=== PATIENT | male | born 1930 | race Caucasian/White ===

== ENCOUNTER 2017-01-20 11:23 | Emergency (ER) | payer MEDICARE, BC ==
--- NOTE | 2017-01-20 12:02 | UC ---
Lower Extremity/Ankle HPI - HPI Summary HPI Summary: 86 y/o male PMHX HTN, Atrial fibrillation stroke presents to the urgent care c/ o RT ankle pain and swelling s/p falling on ice yesterday at 1000AM. Pt reports he twisted his ankle but he was able to walk with w/ mild limping. Pt took Ibuprofen 600mg PO and applied ice on it yesterday. However this morning swelling and pain increased. Pain is 7/10 specially with ambulation. Pt reports he has Hx of Lymphedema, LF leg> RT leg. He is taking Eliquis. Pt denies fever , calf pain, SOB, chest pain, numbness and tingling over the Rt foot, abdominal pain, N/V/D - History of Current Complaint Chief Complaint: UCLowerExtremity Stated Complaint: ANKLE INJURY Time Seen by Provider: 01/20/17 11:56 Hx Obtained From: Patient Onset/Duration: Sudden Onset, Lasting Days - 1 day, Still Present, Worse Since - this morning Severity Initially: Moderate Severity Currently: Moderate Pain Intensity: 7 Pain Scale Used: 0-10 Numeric Aggravating Factor(s): Standing, Ambulation Alleviating Factor(s): Rest, Elevation, Ice Able to Bear Weight: Yes - Risk Factors Gout Risk Factors: Age Over 40, Male, Hypertension DVT Risk Factors: Negative Septic Arthritis Risk Factor: Negative - Allergies/Home Medications Allergies/Adverse Reactions: Allergies Allergy/AdvReac Type Severity Reaction Status Date / Time Penicillins Allergy Hives Verified 01/20/17 11:32 PMH/Surg Hx/FS Hx/Imm Hx Previously Healthy: Yes Endocrine History: Dyslipidemia Other Endocrine History: Lymphedema Cardiovascular History: Hypertension, Atrial Fibrillation Other Neurological History: Spondolythesis, Stroke - Surgical History Surgical History: Yes Surgery Procedure, Year, and Place: Back 1999, 2004, CATARACT SURGERY 2004. Hernia Repair 2000, RETINA REPAIR (LASER) 2004 - Family History Known Family History: Positive: Cardiac Disease, Hypertension - Social History Occupation: Retired Lives: With Family Alcohol Use: None Alcohol Amount: 1/day Substance Use Type: None Smoking Status (MU): Never Smoked Tobacco - Immunization History Most Recent Influenza Vaccination: Fall 2013 Most Recent Tetanus Shot: 2 years Most Recent Pneumonia Vaccination: August 2013 Review of Systems Constitutional: Negative Skin: Negative Eyes: Negative ENT: Negative Respiratory: Negative Cardiovascular: Negative Gastrointestinal: Negative Genitourinary: Negative Motor: Negative Neurovascular: Negative Musculoskeletal: Other: - RT ankle pain and swelling s/p falling Neurological: Negative Psychological: Negative Is Patient Immunocompromised?: No All Other Systems Reviewed And Are Negative: Yes Physical Exam Triage Information Reviewed: Yes Vital Signs: Initial Vital Signs Temp 98 F 01/20/17 11:32 Pulse 85 01/20/17 11:32 Resp 16 01/20/17 11:32 BP 153/67 01/20/17 11:32 Pulse Ox 100 01/20/17 11:32 - Additional Comments Vital Signs Reviewed: Yes General: well developed, well nourished male, sitting in the wheel chair w/o any apparent distress Eyes: Positive: Conjunctiva Clear - PERRLA, EOMI, ENT: Positive: Normal ENT inspection, Hearing grossly normal, Pharynx normal, Pt with B?l ear pieces. RT external ear canal cleat RT WNL, LF exteranl ear canal clear, LF TM injected with erythema. Neck: Positive: Supple, Nontender, No Lymphadenopathy Respiratory: Positive: Chest non-tender, Lungs clear, Normal breath sounds, No respiratory distress Cardiovascular: Positive: RRR, No Murmur, Pulses Normal, Brisk Capillary Refill Abdomen Description: Positive: Nontender, No Organomegaly, Soft. Negative: CVA Tenderness (R), CVA Tenderness (L) Bowel Sounds: Positive: Present Musculoskeletal: - Ankle: Pt is able to bear weight and ambulate w/ limping. The R ankle is without obvious asymmetry or deformity when compared to the L ankle. Decrease ROM due to pain. Moderate swelling at the lateral malleolus, with tenderness to palpation. Mild ecchymosis or bruising observed in the medial malleoulus . Tenderness to palpation over the medial malleolus , Moderate swelling ovr the ankle and foot, specially on the dorsum of foots. Talar tilt test, drwaer test unable to perform due to pain. Peroneal nerve is intact with strong eversion and plantar flexion. Positive sensation over the Rt foot and Rt ankle, positive pulses, capillary refill intact. Left foot with moderate swelling due to HX of lymphedema. FROM for left foot and ankle, sensation WNL and positive pulses. Neurological Exam: Normal Psychological Exam: Normal Skin: warm and dry Lower Extremity Course/Dx - Course Course Of Treatment: 86 y/o male PMHX HTN, Atrial fibrillation stroke presents to the urgent care c/o RT ankle pain and swelling s/p falling on ice yesterday at 1000AM. Pt reports he twisted his ankle but he was able to walk with w/ mild limping. Pt took Ibuprofen 600mg PO and applied ice on it yesterday. However this morning swelling and pain increased. Pain is 7/10 specially with ambulation. Pt reports he has Hx of Lymphedema, LF leg> RT leg. He is taking Eliquis. Pt denies fever, calf pain, SOB, chest pain, numbness and tingling over the Rt foot, abdominal pain, N/V/D. HX obtained. RT can X-ray ordered: Impression: Spiral fracture of the lateral malleolus terminating inferiorly at the level of the ankle Mortise. Pt's symptoms and results consulted with DR Diana , She recommended to call Orthopedic automation test developer. I spoke to Orthopedic Dr Cisse and he recommended to immobilize Pt's Rt ankle with a CAM boot, crutches and NSAIDs and he will see him on Sunday01/22/2017. Pt Rx Tylenol PO for pain since Pt is taking Eloquis PO. Rt ankle immobilized with Yumiko bandage and Ruth placed in his RT ankle. Pt was unable to use crutches, he felt out of balance. Pt given a walker. However was allow to use the clinic's wheel chair until Sunday until he can see Oropedic and get one in a surgical supply store. Rx given for wheel chair. Pt strongly advise to avoid weight bearing, RICE and f/u with Dr Cisse on Sunday. Pt also with RT otitis Media, Rx Zpak only to take it if symptoms worsen. Pt's BP is elevated today advised to decrease salt in diet, monitor BP and f/u with PCP for further management. Pt explained X-ray results. All questions ansawered at Pt's satisfaction. Pt understood and agreed with D/C instructions.Pt left the clinic hemodinamycally stable, A&OX3 and accompany by his friend. - Differential Dx/Diagnosis Differential Diagnosis/HQI/PQRI: Arthritis, Contusion, DVT, Fracture (Closed), Gout, Phlebitis, Sprain, Strain, Tendonitis, Other - lymphedima Provider Diagnoses: 1- Acute RT ankle pain s/p falling. 2-spiral fracture of the lateral malleolus terminating inferiorly at the level of the ankle Mortise. 3-RT acute otitis Media. 4- Uncontrolled HTN - Physician Notifications Discussed Patient Care With: Oren Cisse - He recommended to immobilize Pt' s RT ankle with CAM boot, crutches and NSAIDs and he will see him on Moday 01/22 Time Discussed With Above Provider: 00:05 Instructed by Provider To: Have Pt Call For Appt. Discharge - Discharge Plan Condition: Stable Disposition: HOME Prescriptions: Acetaminophen TAB* [Tylenol TAB*] 650 mg PO Q6H PRN #20 tab PRN Reason: Pain Azithromyxin LEONEL (NF) [Z-Leonel (Zithromax) 250 mg tabs #6] 2 tab PO .TODAY, THEN 1 DAILY #6 tab Patient Education Materials: Ankle Fracture (ED), Otitis Media (ED), Low Sodium Diet (ED) Referrals: Oren Cisse MD [Medical Doctor] - 2 Days Sridhar Romero MD [Primary Care Provider] - If Needed Additional Instructions: 1- You are Dx with Spiral fracture of your RT ankle. 2-Please take medications as directed to alleviate pain and swelling. 3-Please apply ice, keep your ankle immobilized with the ruth. Unable to use crutches due to high risk of falling. Therefore you need a wheel chair for mobilization and avoid weight bearing. . Avoid strenuous exercise or standing for long periods of time 4- Please f/u with your Orthopedic Dr Cisse as soon as possible Sunday Morning for further evaluation and treatment. I spoke to him and he will be expecting you. 5- If you develop severe pain with swelling and SOB please go immediately to the ER for further management 6-Your BP is elevated today. please decrease salt in your diet, monitor BP and if it continues to be elevated please f/u with your PCP for further management 7- Please take the antibiotic as directed for your Otitis media only if pain persists and symptoms worsen
--- NOTE | 2017-01-20 12:43 | RAD ---
Indication: Medial RIGHT ankle pain post fall. Comparison: No relevant prior exams available on the [facility] for comparison. Technique: AP, mortise, and lateral views RIGHT ankle. AP and lateral views RIGHT tibia and fibula. Report: Spiral fracture of the distal metaphysis of the fibula terminating inferiorly at the level of the ankle mortise. Widening of the ankle mortise superior medial and medial. Os trigonum accessory ossicle. Negative for fracture of the more proximal fibula or tibia. Significant soft tissue swelling at the distal lower leg and ankle as well as over the dorsum of the foot most marked over the lateral malleolus. IMPRESSION: 1. Spiral fracture of the lateral malleolus terminating inferiorly at the level of the ankle mortise. 2. Significant incongruity at the ankle mortise without medial malleolus fracture most consistent with associated deltoid ligament tear. 3. Negative for Maisonneuve fracture pattern.
--- NOTE | 2017-01-20 12:43 | RAD ---
Indication: Medial RIGHT ankle pain post fall. Comparison: No relevant prior exams available on the [facility] [place] for comparison. Technique: AP, mortise, and lateral views RIGHT ankle. AP and lateral views RIGHT tibia and fibula. Report: Spiral fracture of the distal metaphysis of the fibula terminating inferiorly at the level of the ankle mortise. Widening of the ankle mortise superior medial and medial. Os trigonum accessory ossicle. Negative for fracture of the more proximal fibula or tibia. Significant soft tissue swelling at the distal lower leg and ankle as well as over the dorsum of the foot most marked over the lateral malleolus. IMPRESSION: 1. Spiral fracture of the lateral malleolus terminating inferiorly at the level of the ankle mortise. 2. Significant incongruity at the ankle mortise without medial malleolus fracture most consistent with associated deltoid ligament tear. 3. Negative for Maisonneuve fracture pattern.
[2017-01-20 13:56] VITALS: BP 146/65
== END 2017-01-20 14:15 | disposition home or self-care (01) ==
LOC: UCEAST 11:23
DX: S82.64XA Nondisplaced fracture of lateral malleolus of right fibula, initial encounter for closed fracture (principal); H66.91 Otitis media, unspecified, right ear; I10 Essential (primary) hypertension; S93.421A Sprain of deltoid ligament of right ankle, initial encounter; W00.0XXA Fall on same level due to ice and snow, initial encounter; Y92.9 Unspecified place or not applicable; Z88.0 Allergy status to penicillin; I48.91 Unspecified atrial fibrillation; Z79.01 Long term (current) use of anticoagulants; Z86.73 Personal history of transient ischemic attack (TIA), and cerebral infarction without residual deficits
CPT/HCPCS: 99213; G0463

== ENCOUNTER 2020-04-29 12:53 | Inpatient (IN) ==
[2020-04-29 14:31] LABS: ABS Lymphocytes 0.5 10^3/ul (1.0-4.8); ABS Monocytes 0.4 10^3/ul (0-0.8); ABS Neutrophils 4.6 10^3/ul (1.5-7.7); Eosinophil % 0.7 %; Hematocrit 42 % (42-52); Lymphocyte % 9.7 %; Mean Corpuscular HGB Conc 33 g/dL (31-36); Mean Corpuscular Hemoglobin 30 pg (27-31); Mean Corpuscular Volume 92 fL (80-94); Mean Platelet Volume 8.9 fL (7.4-10.4); Platelet Count 148 10^3/uL (150-450); Red Blood Count 4.62 10^6 /uL (4.18-5.48); Red Cell Distribution Width 14 % (10-15); White Blood Count 5.6 10^3/uL (3.5-10.8)
[2020-04-29 14:47] LABS: Urine Appearance Clear; Urine Bilirubin Negative (Negative); Urine Blood Negative (Negative); Urine Color Yellow; Urine Glucose Negative (Negative); Urine Ketones Negative (Negative); Urine Nitrite Negative (Negative); Urine Protein Negative (Negative); Urine Specific Gravity 1.006 (1.010-1.030); Urine Urobilinogen Negative (Negative)
[2020-04-29 14:50] LABS: Troponin I 0.01 ng/mL (<0.03)
[2020-04-29 14:52] LABS: Albumin 4.2 g/dL (3.2-5.2); Albumin/Globulin Ratio 1.6 (1-3); BUN/Creatinine Ratio 24.6 (8-20); EGFR Non-African American 56.2 (>60); Globulin 2.6 g/dL (2-4); Magnesium 2.4 mg/dL (1.9-2.7); Potassium 4.1 mmol/L (3.5-5.0); Total Bilirubin 1.1 mg/dL (0.2-1.0); Total Protein 6.8 g/dL (6.4-8.9)
[2020-04-29 15:07] LABS: Urine Bacteria Absent (Absent); Urine Red Blood Cell Absent (Absent); Urine Squamous Epithelial Cell Present (Absent); Urine White Blood Cell Trace(0-5/hpf) (Absent)
[2020-04-29 15:11] LABS: Activated Partial Thrombo Time 33.5 seconds (26.0-38.0); INR 1.18 (0.82-1.09)
[2020-04-29 15:28] LABS: TSH Ultra Thyroid Stim Horm 1.26 mcIU/mL (0.34-5.60)
[2020-04-29] MEDS ORDERED: Ondansetron 4 mg VIAL 2 MG/ML 2 ml VIAL IV PRN (17:52)
[2020-04-29] MEDS ORDERED: Dexamethasone IV 4 MG/ML VIAL 1 ml VIAL IV SLOW PU ONE (18:30)
[2020-04-29] MEDS: Sodium Chloride 5% OPTH.SOL 15 ML BTL BOTH EYES SCH (23:01)
[2020-04-29] MEDS: prednisoLONE 1% OPHTH.SUSP 5 ML OPHTH.SUSP RIGHT EYE SCH (23:02)
[2020-04-30 05:30] LABS: ABS Lymphocytes 0.4 10^3/ul (1.0-4.8); ABS Neutrophils 2.8 10^3/ul (1.5-7.7); Eosinophil % 0.1 %; Hematocrit 42 % (42-52); Hemoglobin 14.1 g/dL (14.0-18.0); Lymphocyte % 10.9 %; Mean Corpuscular HGB Conc 34 g/dL (31-36); Mean Corpuscular Hemoglobin 30 pg (27-31); Mean Corpuscular Volume 90 fL (80-94); Mean Platelet Volume 9.3 fL (7.4-10.4); Platelet Count 161 10^3/uL (150-450); Red Blood Count 4.65 10^6 /uL (4.18-5.48); Red Cell Distribution Width 13 % (10-15); White Blood Count 3.2 10^3/uL (3.5-10.8)
[2020-04-30 05:45] LABS: BUN/Creatinine Ratio 25.2 (8-20); Calcium 9.5 mg/dL (8.6-10.3); EGFR Non-African American 57.8 (>60); Magnesium 2.2 mg/dL (1.9-2.7); Potassium 3.9 mmol/L (3.5-5.0)
[2020-04-30] MEDS: prednisoLONE 1% OPHTH.SUSP 5 ML OPHTH.SUSP RIGHT EYE SCH ×5 (09:01→21:33)
[2020-04-30] MEDS: Sodium Chloride 5% OPTH.SOL 15 ML BTL BOTH EYES SCH ×3 (09:01→21:32)
[2020-04-30] MEDS: Cholecalciferol (VIT D3) 1,000 unit TAB PO SCH (09:02)
[2020-04-30] MEDS: Vitamin THERAPEUTIC TAB PO SCH (09:02)
[2020-04-30] MEDS: Calcium/Vitamin D TAB 250/125 TAB PO SCH (09:02)
[2020-04-30] MEDS ORDERED: Enoxaparin 40 MG/0.4 ML SYR SUBCUT SCH (21:00)
[2020-05-01] MEDS: prednisoLONE 1% OPHTH.SUSP 5 ML OPHTH.SUSP RIGHT EYE SCH ×4 (08:34→20:52)
[2020-05-01] MEDS: Vitamin THERAPEUTIC TAB PO SCH (08:35)
[2020-05-01] MEDS: Cholecalciferol (VIT D3) 1,000 unit TAB PO SCH (08:35)
[2020-05-01] MEDS: Calcium/Vitamin D TAB 250/125 TAB PO SCH (08:36)
[2020-05-01] MEDS: Sodium Chloride 5% OPTH.SOL 15 ML BTL BOTH EYES SCH ×3 (08:51→20:51)
[2020-05-01] MEDS: Psyllium PAK PO SCH (09:57)
[2020-05-01] MEDS: Enoxaparin 80 MG/0.8 ML SYR SUBCUT SCH ×2 (09:57→21:57)
[2020-05-01] MEDS ORDERED: Dextran 70/Hypromellose Tears Eye Drops 15 ml BTL (for Artificials Tears) RIGHT EYE PRN (13:14)
[2020-05-02] MEDS: Sodium Chloride 5% OPTH.SOL 15 ML BTL BOTH EYES SCH ×3 (09:14→21:47)
[2020-05-02] MEDS: prednisoLONE 1% OPHTH.SUSP 5 ML OPHTH.SUSP RIGHT EYE SCH ×3 (09:14→21:46)
[2020-05-02] MEDS: Calcium/Vitamin D TAB 250/125 TAB PO SCH (09:15)
[2020-05-02] MEDS: Vitamin THERAPEUTIC TAB PO SCH (09:19)
[2020-05-02] MEDS: Cholecalciferol (VIT D3) 1,000 unit TAB PO SCH (09:20)
[2020-05-02] MEDS: Enoxaparin 80 MG/0.8 ML SYR SUBCUT SCH ×2 (09:24→21:45)
[2020-05-02] MEDS: Psyllium PAK PO SCH (09:24)
[2020-05-03] MEDS: Sodium Chloride 5% OPTH.SOL 15 ML BTL BOTH EYES SCH ×3 (08:21→19:58)
[2020-05-03] MEDS: prednisoLONE 1% OPHTH.SUSP 5 ML OPHTH.SUSP RIGHT EYE SCH ×3 (08:21→19:58)
[2020-05-03] MEDS: Cholecalciferol (VIT D3) 1,000 unit TAB PO SCH (08:23)
[2020-05-03] MEDS: Calcium/Vitamin D TAB 250/125 TAB PO SCH (08:23)
[2020-05-03] MEDS: Vitamin THERAPEUTIC TAB PO SCH (08:23)
[2020-05-03] MEDS: Psyllium PAK PO SCH (08:24)
[2020-05-03] MEDS: Enoxaparin 80 MG/0.8 ML SYR SUBCUT SCH ×2 (08:24→19:58)
[2020-05-04 06:28] LABS: ABS Lymphocytes 0.3 10^3/ul (1.0-4.8); ABS Monocytes 0.2 10^3/ul (0-0.8); ABS Neutrophils 5.9 10^3/ul (1.5-7.7); Hematocrit 44 % (42-52); Hemoglobin 14.9 g/dL (14.0-18.0); Lymphocyte % 4.3 %; Mean Corpuscular HGB Conc 34 g/dL (31-36); Mean Corpuscular Hemoglobin 31 pg (27-31); Mean Corpuscular Volume 90 fL (80-94); Mean Platelet Volume 9.3 fL (7.4-10.4); Platelet Count 165 10^3/uL (150-450); Red Blood Count 4.86 10^6 /uL (4.18-5.48); Red Cell Distribution Width 14 % (10-15); White Blood Count 6.4 10^3/uL (3.5-10.8)
[2020-05-04 06:37] LABS: Activated Partial Thrombo Time 30.6 seconds (26.0-38.0); INR 1.03 (0.82-1.09)
[2020-05-04 06:46] LABS: BUN/Creatinine Ratio 40.2 (8-20); Calcium 8.7 mg/dL (8.6-10.3); EGFR African American 62.1 (>60); EGFR Non-African American 51.3 (>60); Potassium 3.6 mmol/L (3.5-5.0)
[2020-05-04] MEDS: Enoxaparin 80 MG/0.8 ML SYR SUBCUT SCH (08:58)
[2020-05-04] MEDS: Psyllium PAK PO SCH (08:59)
[2020-05-04] MEDS: prednisoLONE 1% OPHTH.SUSP 5 ML OPHTH.SUSP RIGHT EYE SCH ×3 (08:59→20:20)
[2020-05-04] MEDS: Cholecalciferol (VIT D3) 1,000 unit TAB PO SCH (09:00)
[2020-05-04] MEDS: Sodium Chloride 5% OPTH.SOL 15 ML BTL BOTH EYES SCH ×3 (09:00→20:20)
[2020-05-04] MEDS: Vitamin THERAPEUTIC TAB PO SCH (09:00)
[2020-05-04] MEDS: Calcium/Vitamin D TAB 250/125 TAB PO SCH (09:01)
[2020-05-04] MEDS ORDERED: Buffered Lidocaine 1% SYRIN 1 ml INTRADERM ONE (10:25)
[2020-05-04] MEDS ORDERED: Lactated Ringers 1000 ml BAG 1,000 ML IV SCH (11:00)
[2020-05-04] MEDS ORDERED: Al Hydrox/Mg Hydrox/Simet LIQ 30 ML UDC PO PRN (20:20)
[2020-05-05 05:27] LABS: ABS Lymphocytes 0.2 10^3/ul (1.0-4.8); ABS Monocytes 0.4 10^3/ul (0-0.8); ABS Neutrophils 7.3 10^3/ul (1.5-7.7); Hematocrit 41 % (42-52); Hemoglobin 14.3 g/dL (14.0-18.0); Lymphocyte % 2.6 %; Mean Corpuscular HGB Conc 35 g/dL (31-36); Mean Corpuscular Hemoglobin 31 pg (27-31); Mean Corpuscular Volume 89 fL (80-94); Mean Platelet Volume 8.9 fL (7.4-10.4); Platelet Count 168 10^3/uL (150-450); Red Cell Distribution Width 14 % (10-15)
[2020-05-05 05:44] LABS: BUN/Creatinine Ratio 47.6 (8-20); Calcium 8.4 mg/dL (8.6-10.3); EGFR African American 55.7 (>60); Potassium 3.6 mmol/L (3.5-5.0)
[2020-05-05] MEDS ORDERED: Clindamycin 900 MG/D5W BAG 900 MG/50 ML BAG IVPB ONE ×2 (07:05→07:30)
[2020-05-05] MEDS ORDERED: Vancomycin 1,000 MG VIAL ONE (07:05)
[2020-05-05] MEDS ORDERED: Lidocaine 1% w EPI 1:200,000 SDV 30 ML VIAL ONE (07:05)
[2020-05-05] MEDS ORDERED: Thrombin 5,000 UNITS 1 APPLIC KIT - topical use - TOPICAL ONE (07:05)
[2020-05-05] MEDS ORDERED: Gelfoam Sponge SIZE 100 SPONGE ONE (07:06)
[2020-05-05] MEDS ORDERED: Bacitracin OINTMENT TUBE ONE (07:06)
[2020-05-05] MEDS ORDERED: ceFAZolin VIAL VIAL ONE (07:06)
[2020-05-05] MEDS ORDERED: Bacitracin INJECTION 50,000 UNITS ONE (07:06)
[2020-05-05] MEDS ORDERED: fentaNYL 250 mcg/5 ml 50 MCG/ML 5 ml VIAL (250 MCG) ONE (07:14)
[2020-05-05] MEDS ORDERED: Remifentanil 2 MG VIAL ONE ×2 (07:14→10:06)
[2020-05-05] MEDS ORDERED: Phenylephrine IV 10 MG/ML 1 ml VIAL ONE (07:16)
[2020-05-05] MEDS ORDERED: Propofol 10 MG/ML 20 ML BTL ONE ×2 (07:20→12:23)
[2020-05-05] MEDS ORDERED: HYDROmorphone 1 MG/1 ML SYRINGE IV PRN (07:28)
[2020-05-05] MEDS ORDERED: Naloxone 0.4 mg VIAL 0.4 mg/ml 1 ml VIAL IV PRN (07:28)
[2020-05-05] MEDS ORDERED: Ondansetron 4 mg VIAL 2 MG/ML 2 ml VIAL IV PRN (07:28)
[2020-05-05] MEDS ORDERED: fentaNYL 100 mcg/2 ml 50 MCG/ML VIAL IV PRN (07:28)
[2020-05-05] MEDS ORDERED: Dexamethasone IV 4 MG/ML VIAL 1 ml VIAL ONE (09:14)
[2020-05-05] MEDS ORDERED: Propofol 10 mg/ml 100 ML BTL 200 ML ONE (09:21)
[2020-05-05] MEDS: Psyllium PAK PO SCH (09:56)
[2020-05-05] MEDS: prednisoLONE 1% OPHTH.SUSP 5 ML OPHTH.SUSP RIGHT EYE SCH ×3 (09:56→20:53)
[2020-05-05] MEDS: Sodium Chloride 5% OPTH.SOL 15 ML BTL BOTH EYES SCH ×3 (09:57→20:52)
[2020-05-05] MEDS ORDERED: Clindamycin VIAL 150 MG/ML VIAL (600 MG) ONE (11:00)
[2020-05-05] MEDS: Calcium/Vitamin D TAB 250/125 TAB PO SCH (11:14)
[2020-05-05] MEDS: Cholecalciferol (VIT D3) 1,000 unit TAB PO SCH (11:14)
[2020-05-05] MEDS: Vitamin THERAPEUTIC TAB PO SCH (11:15)
[2020-05-05] MEDS ORDERED: Ondansetron 4 mg VIAL 2 MG/ML 2 ml VIAL ONE (11:56)
[2020-05-05] MEDS ORDERED: EPHEDrine (Pressors) 50 MG/ML VIAL ONE (12:11)
[2020-05-05] MEDS ORDERED: Morphine 2 MG/ML SYRINGE IV PRN (12:45)
[2020-05-05] MEDS ORDERED: Polyethylene Glycol 3350 17 GM PACKET PO PRN (12:45)
[2020-05-05] MEDS ORDERED: fentaNYL 100 mcg/2 ml 50 MCG/ML VIAL ONE (13:30)
[2020-05-05] MEDS ORDERED: NS 0.9% 1000 ml BAG 1,000 ML IV SCH (14:30)
[2020-05-05] MEDS: Dexamethasone IV 4 MG/ML VIAL 1 ml VIAL IV SLOW PU SCH ×2 (15:40→23:15)
[2020-05-05 16:42] LABS: Hepatitis B Surface Antigen Nonreactive (Nonreactive)
[2020-05-05 16:52] LABS: HIV 4th Generation Nonreactive (Nonreactive)
[2020-05-05] MEDS: Clindamycin 900 MG IVPREMIX- Q8H IVPB SCH (17:56)
[2020-05-05] MEDS: Magnesium Hydroxide LIQ 30 ML UDC PO SCH (20:52)
[2020-05-06] MEDS: Clindamycin 900 MG IVPREMIX- Q8H IVPB SCH ×3 (01:57→17:57)
[2020-05-06 02:13] LABS: Hepatitis C Antibody Negative (Negative)
[2020-05-06] MEDS: Dexamethasone IV 4 MG/ML VIAL 1 ml VIAL IV SLOW PU SCH ×3 (06:30→23:06)
[2020-05-06 07:33] LABS: ABS Lymphocytes 0.2 10^3/ul (1.0-4.8); ABS Neutrophils 12.5 10^3/ul (1.5-7.7); Hematocrit 42 % (42-52); Hemoglobin 14.5 g/dL (14.0-18.0); Lymphocyte % 1.5 %; Mean Corpuscular HGB Conc 34 g/dL (31-36); Mean Corpuscular Hemoglobin 31 pg (27-31); Mean Corpuscular Volume 90 fL (80-94); Mean Platelet Volume 9.2 fL (7.4-10.4); Platelet Count 178 10^3/uL (150-450); Red Cell Distribution Width 13 % (10-15); White Blood Count 13.8 10^3/uL (3.5-10.8)
[2020-05-06 07:50] LABS: BUN/Creatinine Ratio 45.5 (8-20); Calcium 8.5 mg/dL (8.6-10.3); EGFR African American 56.6 (>60); EGFR Non-African American 46.8 (>60); Potassium 4.4 mmol/L (3.5-5.0)
[2020-05-06] MEDS: Magnesium Hydroxide LIQ 30 ML UDC PO SCH ×2 (08:14→21:53)
[2020-05-06] MEDS: Psyllium PAK PO SCH (08:15)
[2020-05-06] MEDS: Sodium Chloride 5% OPTH.SOL 15 ML BTL BOTH EYES SCH ×3 (08:16→21:53)
[2020-05-06] MEDS: prednisoLONE 1% OPHTH.SUSP 5 ML OPHTH.SUSP RIGHT EYE SCH ×3 (08:17→21:51)
[2020-05-06] MEDS: Vitamin THERAPEUTIC TAB PO SCH (08:18)
[2020-05-06] MEDS: Cholecalciferol (VIT D3) 1,000 unit TAB PO SCH (08:20)
[2020-05-06] MEDS: Calcium/Vitamin D TAB 250/125 TAB PO SCH (08:20)
[2020-05-06] MEDS ORDERED: Enoxaparin 40 MG/0.4 ML SYR SUBCUT SCH (09:00)
[2020-05-07] MEDS: Clindamycin 900 MG IVPREMIX- Q8H IVPB SCH (02:43)
[2020-05-07 06:36] LABS: ABS Lymphocytes 0.2 10^3/ul (1.0-4.8); ABS Monocytes 1.1 10^3/ul (0-0.8); ABS Neutrophils 11.9 10^3/ul (1.5-7.7); Hematocrit 40 % (42-52); Hemoglobin 13.5 g/dL (14.0-18.0); Lymphocyte % 1.5 %; Mean Corpuscular HGB Conc 34 g/dL (31-36); Mean Corpuscular Hemoglobin 30 pg (27-31); Mean Corpuscular Volume 90 fL (80-94); Mean Platelet Volume 9.2 fL (7.4-10.4); Platelet Count 161 10^3/uL (150-450); Red Blood Count 4.43 10^6 /uL (4.18-5.48); Red Cell Distribution Width 14 % (10-15); White Blood Count 13.2 10^3/uL (3.5-10.8)
[2020-05-07 06:53] LABS: Albumin/Globulin Ratio 1.4 (1-3); BUN/Creatinine Ratio 39.8 (8-20); EGFR African American 44.5 (>60); EGFR Non-African American 36.8 (>60); Globulin 2.2 g/dL (2-4); Potassium 4.7 mmol/L (3.5-5.0); Total Bilirubin 0.9 mg/dL (0.2-1.0); Total Protein 5.2 g/dL (6.4-8.9)
[2020-05-07 07:59] VITALS: BP 166/77
[2020-05-07] MEDS: prednisoLONE 1% OPHTH.SUSP 5 ML OPHTH.SUSP RIGHT EYE SCH (08:24)
[2020-05-07] MEDS: Sodium Chloride 5% OPTH.SOL 15 ML BTL BOTH EYES SCH (08:24)
[2020-05-07] MEDS: Cholecalciferol (VIT D3) 1,000 unit TAB PO SCH (08:28)
[2020-05-07] MEDS: Vitamin THERAPEUTIC TAB PO SCH (08:28)
[2020-05-07] MEDS: Magnesium Hydroxide LIQ 30 ML UDC PO SCH (08:28)
[2020-05-07] MEDS: Psyllium PAK PO SCH (08:29)
[2020-05-07] MEDS: Calcium/Vitamin D TAB 250/125 TAB PO SCH (08:29)
== END 2020-05-07 09:47 | DRG 472 ==
LOC: ED 12:53 → SSU 17:56
PROVIDERS: ADMIT Hospitalist; ATTEND Internal Medicine

== ENCOUNTER 2020-05-07 08:37 | Inpatient (IN) ==
[2020-05-07] MEDS ORDERED: Senna TAB 8.6 mg TAB PO PRN (10:35)
[2020-05-07] MEDS: Clindamycin 900 MG/D5W BAG 900 MG/50 ML BAG IVPB SCH ×2 (11:15→18:50)
[2020-05-07] MEDS: Sodium Chloride 5% OPTH.SOL 15 ML BTL BOTH EYES SCH ×2 (15:00→20:24)
[2020-05-07] MEDS: prednisoLONE 1% OPHTH.SUSP 5 ML OPHTH.SUSP RIGHT EYE SCH ×2 (15:06→20:13)
[2020-05-07] MEDS: Calcium/Vitamin D TAB 250/125 TAB PO SCH (20:12)
[2020-05-08] MEDS: Clindamycin 900 MG/D5W BAG 900 MG/50 ML BAG IVPB SCH ×3 (03:04→18:32)
[2020-05-08] MEDS: Sodium Chloride 5% OPTH.SOL 15 ML BTL BOTH EYES SCH ×3 (08:25→14:16)
[2020-05-08] MEDS: Cholecalciferol (VIT D3) 1,000 unit TAB PO SCH (09:28)
[2020-05-08] MEDS: Calcium/Vitamin D TAB 250/125 TAB PO SCH ×2 (09:28→21:38)
[2020-05-08] MEDS: Psyllium PAK PO SCH (09:30)
[2020-05-08] MEDS: prednisoLONE 1% OPHTH.SUSP 5 ML OPHTH.SUSP RIGHT EYE SCH ×3 (09:30→21:43)
[2020-05-08] MEDS: SODIUM CHLORIDE 5% BOTH EYES PRN (21:42)
[2020-05-08] MEDS: OPTH BOTH EYES PRN (21:42)
[2020-05-09] MEDS: Vitamins A & D OINT 42.5 GM TUBE TOPICAL SCH ×3 (00:25→22:09)
[2020-05-09] MEDS: Clindamycin 900 MG/D5W BAG 900 MG/50 ML BAG IVPB SCH ×2 (02:26→10:37)
[2020-05-09] MEDS: Psyllium PAK PO SCH (09:59)
[2020-05-09] MEDS: Cholecalciferol (VIT D3) 1,000 unit TAB PO SCH (10:01)
[2020-05-09] MEDS: Calcium/Vitamin D TAB 250/125 TAB PO SCH ×2 (10:05→20:47)
[2020-05-09] MEDS: prednisoLONE 1% OPHTH.SUSP 5 ML OPHTH.SUSP RIGHT EYE SCH ×3 (10:11→20:52)
[2020-05-09] MEDS: OPTH BOTH EYES PRN ×4 (10:12→20:54)
[2020-05-09] MEDS: SODIUM CHLORIDE 5% BOTH EYES PRN ×4 (10:12→20:54)
[2020-05-09] MEDS ORDERED: Magnesium Hydroxide LIQ 30 ML UDC PO ONE (13:00)
[2020-05-09] MEDS ORDERED: Magnesium Hydroxide LIQ 30 ML UDC PO PRN (17:06)
[2020-05-10 07:59] LABS: ABS Eosinophils 0.1 10^3/ul (0-0.6); ABS Lymphocytes 0.6 10^3/ul (1.0-4.8); ABS Monocytes 1.1 10^3/ul (0-0.8); ABS Neutrophils 8.4 10^3/ul (1.5-7.7); Eosinophil % 1.4 %; Hematocrit 36 % (42-52); Hemoglobin 12.2 g/dL (14.0-18.0); Lymphocyte % 6.1 %; Mean Corpuscular HGB Conc 34 g/dL (31-36); Mean Corpuscular Hemoglobin 31 pg (27-31); Mean Corpuscular Volume 90 fL (80-94); Mean Platelet Volume 8.2 fL (7.4-10.4); Platelet Count 178 10^3/uL (150-450); Red Blood Count 3.98 10^6 /uL (4.18-5.48); Red Cell Distribution Width 14 % (10-15); White Blood Count 10.3 10^3/uL (3.5-10.8)
[2020-05-10 08:18] LABS: Albumin 2.6 g/dL (3.2-5.2); Albumin/Globulin Ratio 1.1 (1-3); BUN/Creatinine Ratio 32.9 (8-20); Calcium 7.9 mg/dL (8.6-10.3); EGFR Non-African American 47.9 (>60); Globulin 2.3 g/dL (2-4); Potassium 4.3 mmol/L (3.5-5.0); Total Protein 4.9 g/dL (6.4-8.9)
[2020-05-10] MEDS: Calcium/Vitamin D TAB 250/125 TAB PO SCH ×2 (08:57→20:43)
[2020-05-10] MEDS: Cholecalciferol (VIT D3) 1,000 unit TAB PO SCH (08:59)
[2020-05-10] MEDS: Psyllium PAK PO SCH (09:00)
[2020-05-10] MEDS: prednisoLONE 1% OPHTH.SUSP 5 ML OPHTH.SUSP RIGHT EYE SCH ×3 (09:04→20:45)
[2020-05-10] MEDS: Vitamins A & D OINT 42.5 GM TUBE TOPICAL SCH ×2 (10:20→20:46)
[2020-05-11] MEDS: Calcium/Vitamin D TAB 250/125 TAB PO SCH ×2 (10:23→21:09)
[2020-05-11] MEDS: Cholecalciferol (VIT D3) 1,000 unit TAB PO SCH (10:23)
[2020-05-11] MEDS: prednisoLONE 1% OPHTH.SUSP 5 ML OPHTH.SUSP RIGHT EYE SCH ×3 (10:24→21:09)
[2020-05-11] MEDS: Psyllium PAK PO SCH (10:24)
[2020-05-11] MEDS: Vitamins A & D OINT 42.5 GM TUBE TOPICAL SCH ×2 (10:25→21:51)
[2020-05-12] MEDS: Calcium/Vitamin D TAB 250/125 TAB PO SCH ×2 (10:17→20:43)
[2020-05-12] MEDS: Cholecalciferol (VIT D3) 1,000 unit TAB PO SCH (10:17)
[2020-05-12] MEDS: prednisoLONE 1% OPHTH.SUSP 5 ML OPHTH.SUSP RIGHT EYE SCH ×3 (10:18→21:43)
[2020-05-12] MEDS: Psyllium PAK PO SCH (10:18)
[2020-05-12] MEDS: Vitamins A & D OINT 42.5 GM TUBE TOPICAL SCH ×2 (10:28→22:44)
[2020-05-13] MEDS: Cholecalciferol (VIT D3) 1,000 unit TAB PO SCH (08:31)
[2020-05-13] MEDS: Calcium/Vitamin D TAB 250/125 TAB PO SCH ×2 (08:31→21:41)
[2020-05-13] MEDS: Psyllium PAK PO SCH (08:32)
[2020-05-13] MEDS: prednisoLONE 1% OPHTH.SUSP 5 ML OPHTH.SUSP RIGHT EYE SCH ×3 (08:33→21:45)
[2020-05-13] MEDS: Vitamins A & D OINT 42.5 GM TUBE TOPICAL SCH ×2 (12:01→21:41)
[2020-05-14] MEDS: Cholecalciferol (VIT D3) 1,000 unit TAB PO SCH (08:03)
[2020-05-14] MEDS: Calcium/Vitamin D TAB 250/125 TAB PO SCH ×2 (08:04→21:25)
[2020-05-14] MEDS: prednisoLONE 1% OPHTH.SUSP 5 ML OPHTH.SUSP RIGHT EYE SCH ×3 (08:12→21:25)
[2020-05-14] MEDS: OPTH BOTH EYES PRN (08:12)
[2020-05-14] MEDS: SODIUM CHLORIDE 5% BOTH EYES PRN (08:12)
[2020-05-14] MEDS: Psyllium PAK PO SCH (08:13)
[2020-05-14] MEDS: Vitamins A & D OINT 42.5 GM TUBE TOPICAL SCH ×2 (08:14→21:32)
[2020-05-15] MEDS: Cholecalciferol (VIT D3) 1,000 unit TAB PO SCH (09:21)
[2020-05-15] MEDS: prednisoLONE 1% OPHTH.SUSP 5 ML OPHTH.SUSP RIGHT EYE SCH ×3 (09:22→20:47)
[2020-05-15] MEDS: Psyllium PAK PO SCH (09:22)
[2020-05-15] MEDS: Calcium/Vitamin D TAB 250/125 TAB PO SCH ×2 (09:22→20:46)
[2020-05-15] MEDS: Vitamins A & D OINT 42.5 GM TUBE TOPICAL SCH ×2 (09:23→20:48)
[2020-05-16] MEDS: Cholecalciferol (VIT D3) 1,000 unit TAB PO SCH (10:24)
[2020-05-16] MEDS: prednisoLONE 1% OPHTH.SUSP 5 ML OPHTH.SUSP RIGHT EYE SCH ×3 (10:24→20:04)
[2020-05-16] MEDS: Calcium/Vitamin D TAB 250/125 TAB PO SCH ×2 (10:24→20:03)
[2020-05-16] MEDS: Psyllium PAK PO SCH (10:27)
[2020-05-16] MEDS: Vitamins A & D OINT 42.5 GM TUBE TOPICAL SCH ×2 (10:56→20:04)
[2020-05-17] MEDS: Cholecalciferol (VIT D3) 1,000 unit TAB PO SCH (08:09)
[2020-05-17] MEDS: Calcium/Vitamin D TAB 250/125 TAB PO SCH ×2 (08:10→20:12)
[2020-05-17] MEDS: prednisoLONE 1% OPHTH.SUSP 5 ML OPHTH.SUSP RIGHT EYE SCH ×3 (08:13→20:13)
[2020-05-17] MEDS: Psyllium PAK PO SCH (08:13)
[2020-05-17] MEDS: Vitamins A & D OINT 42.5 GM TUBE TOPICAL SCH ×2 (08:21→20:14)
[2020-05-17 08:30] LABS: ABS Basophils 0.1 10^3/ul (0-0.2); ABS Eosinophils 0.1 10^3/ul (0-0.6); ABS Lymphocytes 0.4 10^3/ul (1.0-4.8); ABS Monocytes 0.4 10^3/ul (0-0.8); ABS Neutrophils 6.5 10^3/ul (1.5-7.7); Eosinophil % 1.9 %; Hematocrit 27 % (42-52); Hemoglobin 9.2 g/dL (14.0-18.0); Lymphocyte % 5.8 %; Mean Corpuscular HGB Conc 34 g/dL (31-36); Mean Corpuscular Hemoglobin 30 pg (27-31); Mean Corpuscular Volume 90 fL (80-94); Mean Platelet Volume 7.5 fL (7.4-10.4); Platelet Count 206 10^3/uL (150-450); Red Blood Count 3.04 10^6 /uL (4.18-5.48); Red Cell Distribution Width 13 % (10-15); White Blood Count 7.5 10^3/uL (3.5-10.8)
[2020-05-17 08:38] LABS: Albumin 2.8 g/dL (3.2-5.2); Albumin/Globulin Ratio 1.1 (1-3); BUN/Creatinine Ratio 20.2 (8-20); Calcium 8.7 mg/dL (8.6-10.3); EGFR African American 81.7 (>60); EGFR Non-African American 67.6 (>60); Globulin 2.5 g/dL (2-4); Potassium 3.7 mmol/L (3.5-5.0); Total Bilirubin 0.7 mg/dL (0.2-1.0); Total Protein 5.3 g/dL (6.4-8.9)
[2020-05-18] MEDS: Cholecalciferol (VIT D3) 1,000 unit TAB PO SCH (08:24)
[2020-05-18] MEDS: Psyllium PAK PO SCH (08:24)
[2020-05-18] MEDS: prednisoLONE 1% OPHTH.SUSP 5 ML OPHTH.SUSP RIGHT EYE SCH ×3 (08:24→20:33)
[2020-05-18] MEDS: Calcium/Vitamin D TAB 250/125 TAB PO SCH ×2 (08:24→20:32)
[2020-05-18] MEDS: Vitamins A & D OINT 42.5 GM TUBE TOPICAL SCH ×2 (08:27→20:33)
[2020-05-19 05:56] VITALS: BP 136/74
[2020-05-19] MEDS: Cholecalciferol (VIT D3) 1,000 unit TAB PO SCH (08:40)
[2020-05-19] MEDS: Calcium/Vitamin D TAB 250/125 TAB PO SCH (08:40)
[2020-05-19] MEDS: prednisoLONE 1% OPHTH.SUSP 5 ML OPHTH.SUSP RIGHT EYE SCH (08:42)
[2020-05-19] MEDS: Psyllium PAK PO SCH (08:42)
[2020-05-19] MEDS: Vitamins A & D OINT 42.5 GM TUBE TOPICAL SCH (08:44)
[2020-05-19 09:25] LABS: ABS Basophils 0.1 10^3/ul (0-0.2); ABS Eosinophils 0.1 10^3/ul (0-0.6); ABS Lymphocytes 0.6 10^3/ul (1.0-4.8); ABS Monocytes 0.4 10^3/ul (0-0.8); ABS Neutrophils 7.2 10^3/ul (1.5-7.7); Eosinophil % 1.4 %; Hematocrit 31 % (42-52); Hemoglobin 10.5 g/dL (14.0-18.0); Lymphocyte % 7.7 %; Mean Corpuscular HGB Conc 34 g/dL (31-36); Mean Corpuscular Hemoglobin 31 pg (27-31); Mean Corpuscular Volume 91 fL (80-94); Mean Platelet Volume 7.4 fL (7.4-10.4); Platelet Count 280 10^3/uL (150-450); Red Blood Count 3.44 10^6 /uL (4.18-5.48); Red Cell Distribution Width 14 % (10-15); White Blood Count 8.4 10^3/uL (3.5-10.8)
== END 2020-05-19 13:35 | DRG 560 ==
LOC: PMRU 09:48
PROVIDERS: ADMIT Physical Medicine & Rehabilitation; ATTEND Physical Medicine & Rehabilitation

== ENCOUNTER 2020-12-16 06:50 | Observation (INO) ==
[2020-12-16] MEDS ORDERED: Lidocaine 1% VIAL 10 MG/ML VIAL ONE (08:20)
[2020-12-16] MEDS ORDERED: fentaNYL 100 mcg/2 ml 50 MCG/ML VIAL ONE (08:23)
[2020-12-16] MEDS ORDERED: Iohexol 300 (CONTRAST) 10 ML SDV ONE ×2 (08:23→08:43)
[2020-12-16] MEDS ORDERED: Midazolam 5 mg/5 ml VIAL 1 mg/ml 5 ml VIAL (5 mg) ONE (08:23)
[2020-12-16] MEDS ORDERED: Iohexol 180 (CONTRAST) 10 ML SDV IV ONE (08:40)
[2020-12-16] MEDS ORDERED: ceFAZolin 500 MG VIAL 500 MG in NS 0.9% 50 ML 50 ML IVPB SCH (11:00)
[2020-12-16] MEDS ORDERED: prednisoLONE 1% OPHTH.SUSP 5 ML OPHTH.SUSP LEFT EYE SCH ×2 (14:00→17:00)
[2020-12-16] MEDS: prednisoLONE 1% OPHTH.SUSP 5 ML OPHTH.SUSP LEFT EYE SCH ×2 (16:18→21:03)
[2020-12-16] MEDS: [UNRECOGNIZED DRUG - OTHER] IVPB SCH (17:57)
[2020-12-16] MEDS: Timolol 0.5% OPTH.SOL BTL RIGHT EYE SCH (21:04)
[2020-12-17] MEDS: [UNRECOGNIZED DRUG - OTHER] IVPB SCH ×2 (00:30→09:20)
[2020-12-17] MEDS ORDERED: Selenium 200 mcg TAB (NF) PO SCH (09:00)
[2020-12-17] MEDS ORDERED: prednisoLONE 1% OPHTH.SUSP 5 ML OPHTH.SUSP RIGHT EYE SCH (09:00)
[2020-12-17] MEDS: Timolol 0.5% OPTH.SOL BTL RIGHT EYE SCH (09:20)
[2020-12-17] MEDS: prednisoLONE 1% OPHTH.SUSP 5 ML OPHTH.SUSP LEFT EYE SCH (09:29)
[2020-12-17 12:55] VITALS: BP 152/57
== END 2020-12-17 12:47 | disposition home or self-care (01) ==
LOC: CHICATH 06:50 → MEDTELE 06:50
PROVIDERS: ADMIT Specialist; ATTEND Specialist
PROC: PACEGEN (ICD-10-PCS; 2020-12-16 08:20)